=== PATIENT | male | born 1995 | race Caucasian/White ===

== ENCOUNTER 2020-11-01 22:27 | Emergency (ER) | payer MEDICAID, SELFPAY ==
--- NOTE | ~2020-11-01 | XR_ITS ---
EXAMINATION: XR HAND, RIGHT CLINICAL INFORMATION: Foreign body in hand. I do not appreciate any metacarpal or phalangeal fracture. There are no significant degenerative changes of the hand. COMPARISON: None TECHNIQUE: PA, lateral, and oblique views of the right hand. XR/XR hand RT min 3V FINDINGS/IMPRESSION: Projecting over the palmar surface and is 11 cm linear metallic foreign body. I do not appreciate any metacarpal or phalangeal fracture. There are no significant degenerative changes of the hand.
[2020-11-01 22:30] VITALS: BP 128/85; PULSE 79; RESP 16; TEMP 36.8; O2SAT 98; BMI 16.5
--- NOTE | 2020-11-01 23:40 | ED.SKABFB ---
HPI - Skin/Abscess/Foreign Bdy General Chief complaint: Skin/Abscess/Foreign Body Stated complaint: FB in hand Time Seen by Provider: 11/01/20 23:18 Source: patient Mode of arrival: ambulatory Limitations: no limitations History of Present Illness HPI narrative: 25-year-old male who presents emergency department for evaluation of a foreign body imbedded into his right hand. The patient states that he had a ?picking hook ?in his pocket. He states the reached in his pocket, tripped and fell and the hook imbedded into his right hand, palmar aspect over the 2nd MCP joint. He was unable to withdraw the hook. He denied any numbness or weakness in his index finger. He does not know when his last tetanus shot was given but he believes that it was greater than 5 years prior to evaluation. Patient denies being ill in any way prior to the accident. Related Data Allergies Allergy/AdvReac Type Severity Reaction Status Date / Time erythromycin base Allergy Intermediate HIVES Unverified 03/26/20 17:08 [ERYTHROMYCIN BASE] prednisone AdvReac Hallucinati Verified 11/01/20 22:36 ons Review of Systems Review of Systems: Yes all other systems are reviewed and are negative [facility] Past Medical History [facility] Narrative: Patient has a history of schizoaffective disorder, he does not take any medications for this. He denies tobacco, and alcohol use. He does use recreational marijuana. Medical History (Updated 11/02/20 @ 00:01 by Tor Fine MD) No known health problems Social History Social History Advance Directives: No Advance Directives Information Provided: No Physical Exam Vital Signs: Vital Signs: Last Vital Signs Temp 98.3 F 11/01/20 22:30 Pulse 79 11/01/20 22:30 Resp 16 11/01/20 22:30 BP 128/85 11/01/20 22:30 Pulse Ox 98 11/01/20 22:30 Body Mass Index 16.5 Const: General: cooperative and healthy appearing Orientation/consciousness: oriented to person and oriented to place Neuro: General: oriented to person and oriented to place Extrem: Other: The patient has a long metal instrument imbedded in the right palmar aspect of the hand over the 1st MTP joint. The patient has normal strength and sensory to the right index finger and thumb. Course Course Course Narrative: 25-year-old male who presents emergency department for evaluation of a penetrating trauma to the palmar aspect of the right hand over the MTP joint. The patient had imbedded ?pick hook which required a surgical procedure to remove. The patient tolerated the procedure well and his index finger is neurovascularly intact after the procedure. I did hear a the wound out with 500 cc of normal saline. The patient was given Keflex 500 mg orally prophylactically and was started on Keflex 500 mg 4 times a day for 5 days. Is also given a Tdap vaccination intramuscularly. The patient will be referred to our hand surgeon for re-evaluation. He was given printed and verbal instructions and discharged home. Procedures Procedure Narrative Procedure Narrative: Right hand penetrating trauma/imbedded ?pick hook ?. The patient's physical examination revealed that his index finger was neurovascularly intact. I did discuss the procedure with the patient and he did give me informed verbal consent. The puncture site was prepped with Betadine. The area around the imbedded instrument was anesthetized with 1% lidocaine times 10 cc. Using a #11 scalpel, I made an incision along the bed and instrument. Using gentle traction and twisting motion of was able to extract the imbedded instrument. After extraction of the instrument, the patient's index finger had normal strength and normal capillary refill. The puncture site was irrigated with 500 cc of normal saline. The wound was dressed with bacitracin and a sterile gauze dressing. Patient was given Keflex 500 mg orally and started on Keflex 500 mg 4 times a day x5 days prophylactically. Discharge Plan Discharge Clinical Impression: Embedded foreign body Patient Disposition: Home, Self-Care Instructions: Puncture Wound (ED) Additional Instructions: The imbedded instrument was removed and I did irrigate out the puncture wound. You were given Keflex 500 mg orally. I prescribed Keflex 500 mg 4 times a day for 5 days, this is a prophylactic antibiotic dose to try to prevent infection of the puncture wound. You received a Tdap (tetanus diptheria and Pertussin) vaccination in the emergency department. I want you to follow-up with our hand surgeon for re-evaluation in 2 days to make sure that you can move your finger normally and that there is no infection. Referrals: Aurora Avery MD [Physician] - 2 days (Accidental puncture/embedded pick hook , palmar aspect right hand over 2nd MCP joint, removed in the ED, given Tdap, Keflex 500 mg orally and q.i.d. x5 days prophylactically. Needs follow-up to make sure wound is not infected and function is normal)
[2020-11-01] MEDS: Lidocaine HCl 1 % MPF 5 ML VIAL 10 ML INFILTRATI (23:42)
[2020-11-01] MEDS: Diphth,Pertus(ACell),Tet Adult 0.5 ML SYRINGE IM (23:42)
[2020-11-02] MEDS: cephALEXin 500 MG CAPSULE PO (00:08)
== END 2020-11-02 00:05 | disposition home or self-care (01) ==
PROVIDERS: Emergency Provider Emergency Medicine Emergency Medical Services; PCP Internal Medicine
DX: S60.551A Superficial foreign body of right hand, initial encounter (principal); M79.641 Pain in right hand; Y28.9XXA Contact with unspecified sharp object, undetermined intent, initial encounter; Y93.9 Activity, unspecified; Y92.9 Unspecified place or not applicable; Y99.9 Unspecified external cause status
CPT/HCPCS: 10120; 73130; 90471; 90715; 99284